=== PATIENT | male | born 1975 | race Caucasian/White ===

== ENCOUNTER 2020-07-19 18:24 | Emergency (ER) | payer BC ==
--- NOTE | 2020-07-19 19:27 | EDM.PDOC ---
ED HPI GENERAL MEDICAL PROBLEM - General Chief Complaint: Laceration Stated Complaint: CUT POINTER FINGER ON RIGHT HAND Time Seen by Provider: 07/19/20 19:15 Source of Information: Reports: Patient, RN Notes Reviewed History Limitations: Reports: No Limitations - History of Present Illness INITIAL COMMENTS - FREE TEXT/NARRATIVE: Patient is a 45-year-old male who presents to the ED for the evaluation of a right index finger injury. Patient notes he was cutting vegetables at home with a mandolin slicer, and ended up slicing the top of his fingertip off. This does not involve the fingernail, he could not get the bleeding to stop at home so he comes to the ER to see what can be done about the bleeding. This happened about 30 minutes prior to arrival to the ER. He is not sure about his last tetanus booster. Patient has no numbness or tingling in the finger, and has no other neurovascular injury that is apparent. Patient denies any other sick-like symptoms, fever/chills, cough/shortness of breath, nausea/vomiting/diarrhea. Right Finger-Index Pain Score (Numeric/FACES): 5 - Related Data Allergies Allergy/AdvReac Type Severity Reaction Status Date / Time No Known Allergies Allergy Verified 07/19/20 18:37 Home Meds: Home Meds . [No Known Home Meds] 07/19/20 [History] Past Medical History Oncologic (Cancer) History: Reports: Other (See Below) Other Oncologic History: rectal cancer with chemo therapy Social & Family History - Tobacco Use Tobacco Use Status *Q: Never Tobacco User - Caffeine Use Caffeine Use: Reports: Coffee, Soda - Recreational Drug Use Recreational Drug Use: No ED ROS GENERAL - Review of Systems Review Of Systems: Comprehensive ROS is negative, except as noted in HPI. ED EXAM, SKIN/RASH Exam: See Below Exam Limited By: No Limitations General Appearance: Alert, WD/WN, No Apparent Distress Respiratory/Chest: No Respiratory Distress, Lungs Clear, Normal Breath Sounds, No Accessory Muscle Use, Chest Non-Tender Cardiovascular: Normal Peripheral Pulses, Regular Rate, Rhythm, No Edema Peripheral Pulses: 2+: Radial (L), Radial (R) Extremities: Normal Range of Motion, Normal Capillary Refill Neurological: Alert, Oriented, Normal Cognition, No Motor/Sensory Deficits Psychiatric: Normal Affect, Normal Mood Skin: Warm, Dry, Normal Color, No Rash, Wound/Incision (there is about a 1cm by 5mm oblong avulsion injury to the distal right finger tip.) Course - Vital Signs Last Recorded V/S: Last Vital Signs Temp 96.0 F L 07/19/20 18:40 Pulse 82 07/19/20 18:40 Resp 20 07/19/20 18:40 BP 140/98 H 07/19/20 18:40 Pulse Ox 97 07/19/20 18:40 - Re-Assessments/Exams Free Text/Narrative Re-Assessment/Exam: 07/19/20 19:24 Patient presents to the ED for the evaluation of his finger injury. There is nothing that will be repairable with sutures. I did try to provide hemostasis with silver nitrate however the patient did not tolerate this much at all. So a pressure dressing will be placed, he will be advised to wear this for the next 24 to 48 hours. Patient is amenable to this plan. Departure - Departure Time of Disposition: 19:25 Disposition: Home, Self-Care 01 Condition: Good Clinical Impression: Finger laceration Qualifiers: Encounter type: initial encounter Finger: index finger Damage to nail status: without damage Foreign body presence: without foreign body Laterality: right Qualified Code(s): S61.210A - Laceration without foreign body of right index finger without damage to nail, initial encounter - Discharge Information *PRESCRIPTION DRUG MONITORING PROGRAM REVIEWED*: No *COPY OF PRESCRIPTION DRUG MONITORING REPORT IN PATIENT JEWEL: No Instructions: Laceration Care, Adult, [id number] Referrals: PCP,None [Primary Care Provider] - Additional Instructions: You were evaluated in the ER today for your finger laceration. A pressure dressing was placed at today's visit, to provide relief from bleeding. Recommend you keep this in place for the next 24 to 48 hours. After this time the wound should be on the way to healing, you can keep the area clean and dry, and cleanse with warm soapy water as needed. Please return to the ER at any time if symptoms change or worsen. Sepsis Event Note (ED) - Evaluation Sepsis Screening Result: No Definite Risk - Focused Exam Vital Signs: Vital Signs Temp Pulse Resp BP Pulse Ox 07/19/20 18:40 96.0 F L 82 20 140/98 H 97
== END 2020-07-19 19:45 | disposition home or self-care (01) ==
LOC: JD.ED 18:24
DX: S61.210A Laceration without foreign body of right index finger without damage to nail, initial encounter (principal); W27.4XXA Contact with kitchen utensil, initial encounter; Y92.009 Unspecified place in unspecified non-institutional (private) residence as the place of occurrence of the external cause
CPT/HCPCS: 99282; 99283